=== PATIENT | female | born 1995 | race Two or more races ===

== ENCOUNTER 2025-02-03 02:04 | Emergency (ER) | payer OTHER, SELFPAY ==
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
[2025-02-03 02:13] VITALS: BP 126/97; PULSE 108; RESP 18; TEMP 36.9; O2SAT 99; BMI 24.8
--- NOTE | 2025-02-03 02:27 | MHC.EDTECH ---
Patient was biba vitals taken ,Patient tearful ,refused to change into hospital attire ,RN aware .
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
[2025-02-03 04:06] VITALS: BP 109/74; PULSE 103; RESP 16; TEMP 36.8; O2SAT 100
--- NOTE | 2025-02-03 04:06 | MHC.EDTECH ---
0400 rounding and vitals taken ,Patient yelling and screaming at staff .
--- NOTE | 2025-02-03 04:17 | PC.NURSE ---
mohan occasionally offers loud verbal remarks about being in hospital but remains in bed
--- NOTE | 2025-02-03 04:30 | MHC.EDTECH ---
Patient up oob ,ambulate to bathroom with steady gait ,RN aware .
[2025-02-03 04:50] VITALS: BP 109/74; PULSE 103; RESP 16; TEMP 36.8; O2SAT 100
== END 2025-02-03 06:30 | disposition home or self-care (01) ==
PROVIDERS: Emergency Provider Emergency Medicine
DX: R41.82 Altered mental status, unspecified (principal); Z04.1 Encounter for examination and observation following transport accident
CPT/HCPCS: 70450; 72125; 99283; 99284

== ENCOUNTER → 2025-02-03 02:46 | Outpatient (BNV) | payer SELFPAY | PROVIDERS: Emergency Provider Emergency Medicine; Visit Provider Radiology Diagnostic Radiology | DX: R41.82 Altered mental status, unspecified (principal); V89.2XXA Person injured in unspecified motor-vehicle accident, traffic, initial encounter | CPT/HCPCS: 70450; 72125 ==